=== PATIENT | female | born 1940 | race Caucasian/White ===

== ENCOUNTER → 2019-08-15 08:48 | Outpatient (BNVA) | payer MEDICARE, OTHER, SELFPAY | PROVIDERS: PCP Family Medicine; Visit Provider Family Medicine | DX: R05 Cough (principal); R50.9 Fever, unspecified; J01.00 Acute maxillary sinusitis, unspecified; J20.9 Acute bronchitis, unspecified | CPT/HCPCS: 87804 ==

== ENCOUNTER → 2020-03-04 12:07 | Outpatient (BNVA) | payer MEDICARE, OTHER, SELFPAY | PROVIDERS: PCP Family Medicine; Visit Provider Family Medicine | DX: E78.2 Mixed hyperlipidemia (principal); I10 Essential (primary) hypertension; L91.8 Other hypertrophic disorders of the skin; I48.91 Unspecified atrial fibrillation; Z68.31 Body mass index [BMI] 31.0-31.9, adult; F17.211 Nicotine dependence, cigarettes, in remission; Z71.89 Other specified counseling | CPT/HCPCS: 80053; 80061; 84443; 85025 ==

== ENCOUNTER → 2020-10-11 11:41 | Outpatient (BNVA) | payer MEDICARE, OTHER, SELFPAY | PROVIDERS: PCP Family Medicine; Visit Provider Family Medicine | DX: E78.2 Mixed hyperlipidemia (principal); I10 Essential (primary) hypertension; I48.91 Unspecified atrial fibrillation | CPT/HCPCS: 80053; 80061; 84443; 85025 ==

== ENCOUNTER → 2021-07-28 14:15 | Outpatient (BNVA) | payer MEDICARE, OTHER, SELFPAY | PROVIDERS: PCP Family Medicine; Visit Provider Family Medicine | DX: E78.2 Mixed hyperlipidemia (principal); I10 Essential (primary) hypertension; I48.91 Unspecified atrial fibrillation | CPT/HCPCS: 80053; 80061; 84443; 85025 ==

== ENCOUNTER → 2021-09-29 11:25 | Outpatient (BNVA) | payer MEDICARE, OTHER, SELFPAY | PROVIDERS: PCP Family Medicine; Visit Provider Specialist | DX: M25.572 Pain in left ankle and joints of left foot (principal); M19.072 Primary osteoarthritis, left ankle and foot | CPT/HCPCS: 73610 ==

== ENCOUNTER → 2021-10-30 14:17 | Outpatient (BNVA) | payer MEDICARE, OTHER, SELFPAY | PROVIDERS: PCP Family Medicine; Visit Provider Internal Medicine Cardiovascular Disease | DX: I48.91 Unspecified atrial fibrillation (principal); I10 Essential (primary) hypertension; E78.2 Mixed hyperlipidemia; M79.89 Other specified soft tissue disorders; Z87.891 Personal history of nicotine dependence; Z79.01 Long term (current) use of anticoagulants | CPT/HCPCS: 99214 ==

== ENCOUNTER → 2022-02-25 08:34 | Outpatient (BNVA) | payer MEDICARE, OTHER, SELFPAY | PROVIDERS: PCP Family Medicine; Visit Provider Family Medicine | DX: I10 Essential (primary) hypertension (principal); E78.2 Mixed hyperlipidemia; I48.91 Unspecified atrial fibrillation | CPT/HCPCS: 80053; 80061; 84443; 85025 ==

== ENCOUNTER 2022-03-03 14:11 | Outpatient (CLI) | payer MEDICARE, OTHER, SELFPAY ==
--- NOTE | 2022-03-03 14:18 | MM_ITS ---
WS: [id number] BILATERAL 3D TOMOSYNTHESIS DIGITAL SCREENING MAMMOGRAPHY WITH CAD CLINICAL INFORMATION: Z12.31 - Encounter for screening mammogram for malignant ... HISTORY: Screening mammogram. No current complaints. COMPARISON: TECHNIQUE: Bilateral CC and MLO views. FINDINGS: The breasts are composed of heterogeneous fibroglandular density tissue, which can limit the detectio n of small underlying mass lesions. Incidental punctate calcifications. Vascular calcification. Stabl e nodular subareolar breast tissue. No suspicious mass, asymmetry, calcifications, or architectural d istortion. No evidence of malignancy. MM/[place] [id number] IMPRESSION: BI-RADS: 2-Benign FOLLOW UP: 1 Year Follow-up Recommend return to annual screening mammography.
== END 2022-03-03 14:12 | disposition home or self-care (01) ==
LOC: RAD 14:12
PROVIDERS: PCP Family Medicine; Visit Provider Family Medicine
DX: Z12.31 Encounter for screening mammogram for malignant neoplasm of breast (principal)
CPT/HCPCS: 77063; 77067

== ENCOUNTER → 2022-04-30 14:16 | Outpatient (BNVA) | payer MEDICARE, OTHER, SELFPAY | PROVIDERS: PCP Family Medicine; Visit Provider Internal Medicine Cardiovascular Disease | DX: I48.91 Unspecified atrial fibrillation (principal); E78.2 Mixed hyperlipidemia; I10 Essential (primary) hypertension; M79.89 Other specified soft tissue disorders; Z87.891 Personal history of nicotine dependence | CPT/HCPCS: 99213; 99214 ==

== ENCOUNTER → 2022-11-19 13:59 | Outpatient (BNVA) | payer MEDICARE, OTHER, SELFPAY | PROVIDERS: PCP Family Medicine; Visit Provider Internal Medicine Cardiovascular Disease | DX: I48.91 Unspecified atrial fibrillation (principal); I10 Essential (primary) hypertension; E78.2 Mixed hyperlipidemia; M79.89 Other specified soft tissue disorders; Z87.891 Personal history of nicotine dependence | CPT/HCPCS: 99214 ==

== ENCOUNTER → 2023-01-04 13:05 | Outpatient (BNVA) | payer MEDICARE, OTHER, SELFPAY | PROVIDERS: PCP Family Medicine; Referring Provider Family Medicine; Visit Provider Dermatology | DX: L85.9 Epidermal thickening, unspecified (principal); L57.0 Actinic keratosis; L81.4 Other melanin hyperpigmentation; L82.1 Other seborrheic keratosis; L84 Corns and callosities; L85.3 Xerosis cutis; Z12.83 Encounter for screening for malignant neoplasm of skin | CPT/HCPCS: 11102; 17000; 99203 ==

== ENCOUNTER → 2023-02-16 10:01 | Outpatient (BNVA) | payer MEDICARE, OTHER, SELFPAY | PROVIDERS: PCP Family Medicine; Visit Provider Family Medicine | DX: E78.5 Hyperlipidemia, unspecified (principal); I10 Essential (primary) hypertension; I48.91 Unspecified atrial fibrillation | CPT/HCPCS: 80053; 80061; 84443 ==

== ENCOUNTER → 2023-06-10 13:58 | Outpatient (BNVA) | payer MEDICARE, OTHER, SELFPAY | PROVIDERS: PCP Family Medicine; Visit Provider Nurse Practitioner Family | DX: I48.91 Unspecified atrial fibrillation (principal); Z87.891 Personal history of nicotine dependence; Z79.01 Long term (current) use of anticoagulants | CPT/HCPCS: 99213 ==

== ENCOUNTER → 2023-09-01 09:30 | Outpatient (BNVA) | payer MEDICARE, OTHER, SELFPAY | PROVIDERS: PCP Family Medicine; Visit Provider Family Medicine | DX: I10 Essential (primary) hypertension; E78.2 Mixed hyperlipidemia; I48.91 Unspecified atrial fibrillation | CPT/HCPCS: 80053; 80061; 84443; 85025 ==

== ENCOUNTER 2023-10-22 16:34 | Emergency (ER) | payer MEDICARE, OTHER, SELFPAY ==
[2023-10-22 16:38] VITALS: BP 162/66; PULSE 92; RESP 16; TEMP 36.7; O2SAT 93
--- NOTE | 2023-10-22 16:41 | XRR_ITS ---
PROCEDURE INFORMATION: Exam: XR Left Shoulder Exam date and time: 10/22/2023 5:05 PM Age: 83 years old Clinical indication: Injury or trauma; Fall; Other: Unknown; Additional info: Trauma/fall TECHNIQUE: Imaging protocol: Radiologic exam of the left shoulder. Views: 2 or more views. COMPARISON: No relevant prior studies available. FINDINGS: Bones/joints: The glenohumeral articulation is grossly intact. 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 Soft tissues: No gross soft tissue abnormality. XR/XR shoulder LT min 2V* [id number] IMPRESSION: 1. No evidence of fracture or subluxation.
--- NOTE | 2023-10-22 16:41 | XRR_ITS ---
PROCEDURE INFORMATION: Exam: XR Right Shoulder Exam date and time: 10/22/2023 5:07 PM Age: 83 years old Clinical indication: Injury or trauma; Fall; Other: Unknown; Additional info: Trauma/fall TECHNIQUE: Imaging protocol: Radiologic exam of the right shoulder. Views: 2 or more views. COMPARISON: No relevant prior studies available. FINDINGS: Bones/joints: The glenohumeral articulation is grossly intact. 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 Soft tissues: No gross soft tissue abnormality. XR/XR shoulder RT min 2V* [id number] IMPRESSION: 1. No evidence of fracture or subluxation.
--- NOTE | 2023-10-22 18:44 | W.ED.EXTPRO ---
HPI - Extremity Problem General: Chief complaint: Extremity Injury, Upper Stated complaint: Left arm pain Time Seen by Provider: 10/22/23 18:41 History of Present Illness: 83-year-old female with a history of hypertension and A-fib on Xarelto who presents the emergency room with bilateral shoulder pain after she fell earlier today. She has a bruise on her left shoulder and pain. No obvious deformity. She has some mild pain in her right shoulder as well. She did not hit her head. No altered mental status. No loss of consciousness. Review of Systems Narrative: Constitutional symptoms: Negative except as documented in HPI. Skin symptoms: Negative except as documented in HPI. Eye symptoms: Negative except as documented in HPI. ENMT symptoms: Negative except as documented in HPI. Respiratory symptoms: Negative except as documented in HPI. Cardiovascular symptoms: Negative except as documented in HPI. Gastrointestinal symptoms: Negative except as documented in HPI. Genitourinary symptoms: Negative except as documented in HPI. Musculoskeletal symptoms: Negative except as documented in HPI. Neurologic symptoms: Negative except as documented in HPI. Psychiatric symptoms: Negative except as documented in HPI. Endocrine symptoms: Negative except as documented in HPI. PFSH ED PFSH: Medical History (Updated 10/22/23 @ 18:47 by Tata Madison MD) Hypertension Hyperlipidemia Afib Surgical History Hx of hysterectomy Hx of right inguinal hernia repair Hx of bilateral cataract extraction Hx of colonoscopy History of surgical removal of ganglion cyst Family History Family/Other CAD (coronary artery disease) Brother Cancer Mother Dementia Denies family history of Diabetes Clotting disorder Chronic kidney disease (CKD) Suicide Anesthesia complication Bleeding disorder Lung disease Stroke Social History Smoking and tobacco/nicotine status: former use of tobacco/nicotine Quit status (tobacco/nicotine): has quit using Year quit tobacco: 1992 Second hand smoke exposure: No Alcohol intake: never Substance/Drug Use: never Current occupational status: retired Physical Exam Narrative: EXAM NARRATIVE: General: Alert, no acute distress. Skin: warm and dry Head: Normocephalic Neck: Trachea midline Eye: Extraocular movements are intact. Ears, nose, mouth and throat: Oral mucosa moist Respiratory: Respirations are non-labored Musculoskeletal: Left shoulder with a large bruise and some limitation of her range of motion secondary to pain. No obvious deformity. Right shoulder has no deformity with better range of motion. Neurological: Alert and oriented to person, place, time, and situation, No focal neurological deficit observed. Psychiatric: Cooperative, appropriate mood & affect. Course Vital Signs: Vital signs: Vital Signs Temperature 98.1 F 10/22/23 16:38 Pulse Rate 92 10/22/23 16:38 Respiratory Rate 16 10/22/23 16:38 Blood Pressure 162/66 10/22/23 16:38 Pulse Oximetry 93 10/22/23 16:38 Oxygen Delivery Me thod Room Air 10/22/23 16:38 MDM - Extremity (Nontraumatic) Medical Decision Making Medical decision making: Differential diagnosis including but not limited to and based on the above HPI, review of systems and physical exam: Concern for shoulder fractures. Bilateral shoulder films were ordered. Orders placed to evaluate differential diagnosis based on the above differential, HPI and physical exam Bilateral x-rays show no shoulder fractures or dislocations. Lab Data Radiology Impressions Shoulder X-Ray 10/22/23 16:41 IMPRESSION: 1. No evidence of fracture or subluxation. All radiology interpretation(s) finalized by discharge Other Data Assessment and plan: - Discharged home - Discussed plan with patient. Answered any questions. - Evaluation and treatment of this problem were appropriate in the emergency setting. Discharge Plan Discharge Patient Disposition: Home Clinical Impression: Bilateral shoulder injury Condition: Stable Prescriptions: No Action Xarelto 20 mg tablet See Rx Instructions .ROUTE .COMPLEX Qty: 30 6RF Dose Instruction: TAKE ONE TABLET BY MOUTH EVERY DAY Rx Instructions: TAKE ONE TABLET BY MOUTH EVERY DAY metoprolol tartrate 50 mg tablet 50 mg PO BID Qty: 60 5RF hydralazine 25 mg tablet 25 mg PO BID 90 Days Qty: 180 5RF losartan 50 mg tablet See Rx Instructions .ROUTE .COMPLEX Qty: 270 2RF Dose Instruction: TAKE TWO TABLETS BY MOUTH EVERY MORNING AND TAKE ONE TABLET EVERY EVENING Rx Instructions: TAKE TWO TABLETS BY MOUTH EVERY MORNING AND TAKE ONE TABLET EVERY EVENING atorvastatin 40 mg tablet 40 mg PO DAILY Qty: 90 3RF cholecalciferol (vitamin D3) 25 mcg (1,000 unit) capsule 25 mcg PO DAILY Qty: 90 3RF diltiazem HCl 120 mg capsule,extended release 24hr See Rx Instructions .ROUTE .COMPLEX Qty: 90 3RF Dose Instruction: TAKE ONE CAPSULE BY MOUTH EVERY DAY Rx Instructions: TAKE ONE CAPSULE BY MOUTH EVERY DAY Discharge Orders: Discharge ED (Routine); Ordered 10/22/23 Ordered By: Tata Madison Referrals: Seth Spann DO [Physician] - (Please call for an appointment if pain persist.) Makenzie Larios MD [Primary Care Provider] - (You have been screened and evaluated and felt safe for discharge. Health conditions do change or evolve sometimes and as such it is important that you follow up with your Primary Doctor to be re checked, 3-5 days is a general good time frame for follow up. You are always welcome to return to the ED for re assessment if your symptoms are worsening or you have new concerns) Discharge Diet: Usual diet Discharge Activity: Increase activity as tolerated Patient Instructions: Shoulder Sprain (ED), Opioid Safety, Pain Management Coding Level of Care Code ED Property Management Coordinator for Neda Schumacher
== END 2023-10-22 19:08 | disposition home or self-care (01) ==
PROVIDERS: Emergency Provider Emergency Medicine; PCP Family Medicine
DX: S40.012A Contusion of left shoulder, initial encounter (principal); S49.91XA Unspecified injury of right shoulder and upper arm, initial encounter; W19.XXXA Unspecified fall, initial encounter; I10 Essential (primary) hypertension; E78.5 Hyperlipidemia, unspecified; Z87.891 Personal history of nicotine dependence
CPT/HCPCS: 73030; 99283

== ENCOUNTER 2023-10-30 01:43 | Emergency (ER) | payer MEDICARE, OTHER, SELFPAY ==
[2023-10-30 01:43] VITALS: BP 180/85; PULSE 87; RESP 18; TEMP 36.8; O2SAT 91; BMI 28.1
--- NOTE | 2023-10-30 02:12 | W.ED.EXTPRO ---
HPI - Extremity Problem General: Chief complaint: Extremity Injury, Upper Stated complaint: left arm pain Time Seen by Provider: 10/30/23 01:59 History of Present Illness: 83-year-old female presents emergency department via EMS personnel with complaints of bruising and swelling to her left arm. She states that she fell on 10/22/2023 and was seen here in the emergency department. She states she followed up with her primary care provider on 10/28/2023 who documented that the extension of the bruising was down to the DIP of the left hand. Patient does have full range of motion of the elbow and hand she states she does have slightly limited motion of the entire arm at that shoulder level. She states that she is scheduled for an MRI and to have the ligaments evaluated. She states she did take her pain pill and it did help with the pain. She states she has not been wearing her sling as requested because the Velcro scratches her skin. Review of Systems General: Reports: 10 or more systems reviewed and unremarkable except in HPI and below Musc: Reports: extremity swelling Skin/Breast: Reports: pruritus and skin swelling [facility] ED PFSH: Medical History (Updated 10/30/23 @ 03:54 by John Payne MD) Enrolled in chronic care management Hypertension Hyperlipidemia Afib Surgical History Hx of hysterectomy Hx of right inguinal hernia repair Hx of bilateral cataract extraction Hx of colonoscopy History of surgical removal of ganglion cyst Family History Family/Other CAD (coronary artery disease) Brother Cancer Mother Dementia Denies family history of Diabetes Clotting disorder Chronic kidney disease (CKD) Suicide Anesthesia complication Bleeding disorder Lung disease Stroke Social History Smoking and tobacco/nicotine status: former use of tobacco/nicotine Quit status (tobacco/nicotine): has quit using Year quit tobacco: 1992 Second hand smoke exposure: No Alcohol intake: never Substance/Drug Use: never Current occupational status: retired Physical Exam Narrative: EXAM NARRATIVE: General: Alert, no acute distress. Skin: Warm, dry, Intact. Head: Normocephalic, atraumatic. Neck: Supple, trachea midline. Eye: Extraocular movements are intact. PERRLA Ears, nose, mouth and throat: mucosa moist. Cardiovascular: Regular, Normal peripheral perfusion. Respiratory: Lungs are clear to auscultation, respirations are non-labored, breath sounds are equal, Symmetrical chest wall expansion. Gastrointestinal: Soft, Nontender, Non distended, Normal bowel sounds. Musculoskeletal: Normal ROM, no deformity. Patient does have significant bruising that does appear to be healing she is more purple to the distal left hand, she she does have capillary refills less than 3 seconds. She has no difficulty with flexion extension abduction or adduction of her fingers, wrist, and entire left arm. Neurological: Alert and oriented, No focal neurological deficit observed. Psychiatric: Cooperative, appropriate mood & affect. Course Vital Signs: Vital signs: Vital Signs Temperature 98.2 F 10/30/23 01:43 Pulse Rate 87 10/30/23 01:43 Respiratory Rate 18 10/30/23 01:43 Blood Pressure 180/85 10/30/23 01:43 Pulse Oximetry 91 10/30/23 01:43 MDM - Extremity (Nontraumatic) Medical Decision Making Physical exam completed and documented I did review the patient's previous 2 notes from her primary care provider as well as the ER visit or Dr. López saw her for complaints of arm pain. Patient does have pain medication. I have requested that the patient get a Webril wrap to the left upper extremity. We have also provided some foam tape over the area of the Velcro that does appear to be sharp and scratchy. Penis was intact both before and after the compression dressing on left arm. Pulses remained 2+ and equal bilaterally. a left arm compression dressing was applied capillary refill is less than 3 seconds in the extremity remained warm. Patient will be discharged home and have advised her to follow the previous recommendations of her primary care provider and to keep the appointment that she is already made to have her MRI evaluated. Medical Records I reviewed the patient's medical records. No radiology studies performed this visit Discharge Plan Discharge Patient Disposition: Home Clinical Impression: Traumatic ecchymosis of left upper arm, Edema of left upper extremity Condition: Stable Prescriptions: No Action Xarelto 20 mg tablet See Rx Instructions .ROUTE .COMPLEX Qty: 30 6RF Dose Instruction: TAKE ONE TABLET BY MOUTH EVERY DAY Rx Instructions: TAKE ONE TABLET BY MOUTH EVERY DAY metoprolol tartrate 50 mg tablet 50 mg PO BID Qty: 60 5RF hydralazine 25 mg tablet 25 mg PO BID 90 Days Qty: 180 5RF losartan 50 mg tablet See Rx Instructions .ROUTE .COMPLEX Qty: 270 2RF Dose Instruction: TAKE TWO TABLETS BY MOUTH EVERY MORNING AND TAKE ONE TABLET EVERY EVENING Rx Instructions: TAKE TWO TABLETS BY MOUTH EVERY MORNING AND TAKE ONE TABLET EVERY EVENING atorvastatin 40 mg tablet 40 mg PO DAILY Qty: 90 3RF hydrocodone-acetaminophen 5-325 mg tablet 1 tab PO BID PRN (Reason: pain) 10 Days Qty: 20 0RF cholecalciferol (vitamin D3) 25 mcg (1,000 unit) capsule 25 mcg PO DAILY Qty: 90 3RF diltiazem HCl 120 mg capsule,extended release 24hr See Rx Instructions .ROUTE .COMPLEX Qty: 90 3RF Dose Instruction: TAKE ONE CAPSULE BY MOUTH EVERY DAY Rx Instructions: TAKE ONE CAPSULE BY MOUTH EVERY DAY Discharge Orders: Discharge ED (Routine); Ordered 10/30/23 Ordered By: John Payne Referrals: Makenzie Larios MD [Primary Care Provider] - Discharge Diet: Usual diet Discharge Activity: Resume usual activity Patient Instructions: Opioid Safety, Pain Management Activity Restrictions/Additional Instructions: Activity Restrictions/Additional Instructions: Thank you for choosing [facility] for your healthcare needs today. Please realize that you were seen in the Emergency Department and that we are providing you with an emergency medical screening exam and this may not be a complete and all inclusive of all the testing and or medical work-up that you may need to determine your ailment or severity of your illness. It is very important that you follow-up as instructed with your Primary care provider or Specialist for additional evaluation and to discuss your medical treatment plan. Y Coding Level of Care Code ED Quality Liaison for Neda Schumacher
[2023-10-30 04:10] VITALS: BP 155/74; PULSE 93; RESP 18; O2SAT 92
[2023-10-30 04:23] VITALS: BP 155/74; PULSE 92; RESP 18; O2SAT 93
== END 2023-10-30 04:14 | disposition home or self-care (01) ==
PROVIDERS: Emergency Provider Internal Medicine; PCP Family Medicine
DX: S40.022A Contusion of left upper arm, initial encounter (principal); R60.0 Localized edema; Z87.891 Personal history of nicotine dependence; I10 Essential (primary) hypertension; E78.5 Hyperlipidemia, unspecified; W19.XXXA Unspecified fall, initial encounter
CPT/HCPCS: 99281

== ENCOUNTER 2023-11-09 15:08 | Outpatient (CLI) | payer MEDICARE, OTHER, SELFPAY ==
--- NOTE | 2023-11-09 16:00 | MR_ITS ---
WS: [id number] MRI LEFT SHOULDER HISTORY: M25.512 - Pain in left shoulder COMPARISON: Radiograph 10/22/2023 TECHNIQUE: Multiplanar sequences of the shoulder joint are submitted. Moderate to severe AC joint arthritis. Loss of the normal joint space with osteophytic ridging encroa sophia upon the region of the myotendinous supraspinatus. High riding humeral head abuts the undersurf tommie of the acromion. No os acromion. Partial subluxation of the biceps tendon from the bicipital groo ve. Severe atrophy of the supraspinatus muscle. Edema in the subscapularis and infraspinatus muscles. Com plete tear with retraction of the supraspinatus tendon into the medial humeral head near the glenoid. Subscapularis tendon is being displaced. The distal aspect is not very well visualized. Infraspinatu s tendon is probably intact. High riding humeral head with loss of the cartilage. Complex fluid and synovial thickening surroundin g the head. There is a large heterogeneous cystic mass anterior to the humeral head measuring 2.5 x 5 .3 cm. This is probably synovial fluid. Probably related to rotator cuff tear or arthritis. 11 mm loo se body lateral to the humeral head. Marked narrowing of the glenohumeral joint. Labrum is diffusely abnormal. MR/MR shoulder LT wo con* [id number] IMPRESSION: 1. Advanced degenerative changes at the LEFT shoulder joint. 2. Complete tear with retraction supraspinatus tendon. Suspect additional tend on tear of the subscapularis tendon. 3. Marked synovitis and soft tissue surrounding the humeral head. There is a l arge complex cystic mass extending anterior to the humeral head. Probably relat ed to meniscal or labral tear. 4. Severe AC joint arthritis. 5. High riding humeral head. 6. 11 mm loose body lateral to the humeral head. 7. Abnormal labrum. 8. Edema in the infraspinatus and subscapularis muscles. 9. Severe atrophy of the supraspinatus muscle.
== END 2023-11-09 15:09 | disposition home or self-care (01) ==
LOC: RAD 15:09
PROVIDERS: PCP Family Medicine; Visit Provider Family Medicine
DX: M25.512 Pain in left shoulder (principal); M25.412 Effusion, left shoulder; M19.012 Primary osteoarthritis, left shoulder; M24.012 Loose body in left shoulder
CPT/HCPCS: 73221

== ENCOUNTER → 2023-12-13 15:09 | Outpatient (BNVA) | payer MEDICARE, OTHER, SELFPAY | PROVIDERS: PCP Family Medicine; Visit Provider Internal Medicine Cardiovascular Disease | DX: I48.91 Unspecified atrial fibrillation (principal); Z79.01 Long term (current) use of anticoagulants; I10 Essential (primary) hypertension; E78.2 Mixed hyperlipidemia; Z87.891 Personal history of nicotine dependence | CPT/HCPCS: 99214 ==

== ENCOUNTER → 2024-01-19 09:20 | Outpatient (BNVA) | payer MEDICARE, OTHER, SELFPAY | PROVIDERS: PCP Family Medicine; Visit Provider Specialist | DX: M12.812 Other specific arthropathies, not elsewhere classified, left shoulder; S46.812A Strain of other muscles, fascia and tendons at shoulder and upper arm level, left arm, initial encounter; W10.9XXA Fall (on) (from) unspecified stairs and steps, initial encounter | CPT/HCPCS: 73030; 99214 ==

== ENCOUNTER 2024-01-26 06:00 | Outpatient (RCR) | payer MEDICARE, OTHER, SELFPAY | END 2024-02-09 23:59 | disposition home or self-care (01) | LOC: TPT 06:00 | PROVIDERS: Visit Provider Specialist | DX: M75.102 Unspecified rotator cuff tear or rupture of left shoulder, not specified as traumatic (principal); M75.02 Adhesive capsulitis of left shoulder | CPT/HCPCS: 97110; 97140; 97162 ==

== ENCOUNTER 2024-02-10 06:00 | Outpatient (RCR) | payer MEDICARE, OTHER, SELFPAY | END 2024-03-11 23:59 | disposition home or self-care (01) | LOC: TPT 06:00 | PROVIDERS: Visit Provider Specialist | DX: M75.102 Unspecified rotator cuff tear or rupture of left shoulder, not specified as traumatic (principal); M75.02 Adhesive capsulitis of left shoulder | CPT/HCPCS: 97110; 97140 ==

== ENCOUNTER → 2024-06-20 15:52 | Outpatient (BNVA) | payer MEDICARE, OTHER, SELFPAY | PROVIDERS: Visit Provider Internal Medicine Cardiovascular Disease | DX: I10 Essential (primary) hypertension (principal); I48.91 Unspecified atrial fibrillation; E78.5 Hyperlipidemia, unspecified; M79.89 Other specified soft tissue disorders; M19.90 Unspecified osteoarthritis, unspecified site; Z87.891 Personal history of nicotine dependence; Z79.01 Long term (current) use of anticoagulants | CPT/HCPCS: 99214 ==

== ENCOUNTER → 2024-07-20 10:46 | Outpatient (BNVA) | payer MEDICARE, OTHER, SELFPAY | PROVIDERS: PCP Family Medicine; Visit Provider Family Medicine | DX: I10 Essential (primary) hypertension (principal); I48.91 Unspecified atrial fibrillation; E78.2 Mixed hyperlipidemia; Z79.01 Long term (current) use of anticoagulants | CPT/HCPCS: 80053; 80061; 83735; 85025 ==

== ENCOUNTER → 2024-09-14 13:44 | Outpatient (BNVA) | payer MEDICARE, OTHER, SELFPAY | PROVIDERS: PCP Family Medicine; Visit Provider Orthopaedic Surgery | DX: M54.50 Low back pain, unspecified (principal) | CPT/HCPCS: 72110; 99203 ==

== ENCOUNTER → 2024-09-25 14:05 | Outpatient (BNVA) | payer MEDICARE, OTHER, SELFPAY | PROVIDERS: PCP Family Medicine; Visit Provider Specialist | DX: M65.351 Trigger finger, right little finger (principal); M67.431 Ganglion, right wrist | CPT/HCPCS: 73130; 99214 ==

== ENCOUNTER → 2024-10-23 13:42 | Outpatient (BNVA) | payer MEDICARE, OTHER, SELFPAY | PROVIDERS: PCP Family Medicine; Visit Provider Specialist | DX: M17.0 Bilateral primary osteoarthritis of knee (principal) | CPT/HCPCS: 73560; 73565; 99214 ==

== ENCOUNTER 2024-11-11 12:53 | Emergency (ER) | payer MEDICARE, OTHER, SELFPAY ==
[2024-11-11 12:54] VITALS: BP 199/77; PULSE 70; RESP 16; TEMP 37.1; O2SAT 92; BMI 28.1
--- NOTE | 2024-11-11 13:18 | ED_ITS ---
HPI - Back Pain/Injury General: Chief Complaint: Back Pain/Injury Stated Complaint: lower back pain Time Seen by Provider: 11/11/24 13:02 Source: patient Mode of arrival: ambulatory Limitations: no limitations History of Present Illness: 84yo female presents with right-sided ba ck pain that started last night at approximately 2030. Patient states she was sitting on a hard chair for 4 hours last night and had some pain when she got up. States that she was okay when she was in the car, but had significant discomfort when she got out of the car. Reports that she was not able to sleep due to the pain. States that it did ease up a little with a heating pad this morning, but came back again. Patient states it feels as if there is a catch in her back and she believes it is muscle spasms. Patient reports she was recently diagnosed with scoliosis. Patient denies any recent falls, trauma, known injury, radiation of pain down the leg, midline back pain, numbness/tingling, any other concerns at this time. Associated symptoms: Deny chills or fever(s) Related Data Home Medications ?Medication ?Instructions ?Recorded ?Confirmed diltiazem HCl 120 mg 120 mg PO DAILY 11/11/2410/03 capsule,extended release 24 hr rivaroxaban 20 mg tablet (Xarelto) 20 mg PO DAILY 10/0311/11/24 Previous Rx's ?Medication ?Instructions ?Recorded atorvastatin 40 mg tablet 40 mg PO DAILY #90 tabs 03/12 04/04 hydralazine 50 mg tablet 50 mg PO BID 90 days #180 ta bs 06/20/24 losartan 100 mg tablet 100 mg PO DAILY #90 tabs 05/05 losartan 50 mg tablet 50 mg PO DAILY #90 tabs 09/09 metoprolol tartrate 50 mg tablet 50 mg PO DAILY #90 ta bs 09/18/24 meloxicam 15 mg tablet 15 mg PO DAILY #30 tabs 10/10 11/03 lidocaine 4 % topical patch 1 patch topical Q12H PRN p ain #10 11/11/24 ea tizanidine 4 mg tablet 4 mg PO Q8H PRN muscle spast icity 11/11/24 #20 tabs Allergies Allergy/AdvReac Type Severity Reaction Status Date / Time aspirin Allergy Unknown Unknown Verified 10/23/24 13:48 Penicillins Allergy Unknown rash Verified 10/23/24 13:48 hydrochlorothiazide AdvReac Mild exhaustion Verified 10/23/24 13:48 Review of Systems Const: Denies: fever(s), chills or body aches Card: Denies: chest pain Resp: Denies: dyspnea : Denies: flank pain Musc: Reports: back pain Neuro: Denies: numbness in extremities or weakness in extremities PFSH ED PFSH: Medical History Chronic anticoagulation Enrolled in chronic care management Hypertension Hyperlipidemia Afib Surgical History Hx of hysterectomy Hx of right inguinal hernia repair Hx of bilateral cataract extraction Hx of colonoscopy History of surgical removal of ganglion cyst Family History Family/Other CAD (coronary artery disease) Brother Prostate cancer Mother Dementia Denies family history of Diabetes Clotting disorder Chronic kidney disease (CKD) Suicide Anesthesia complication Bleeding disorder Lung disease Stroke Social History Smoking and tobacco/nicotine status: former use of tobacco/nicotine Quit status (tobacco/nicotine): has quit using Year quit tobacco: 1992 Second hand smoke exposure: No Alcohol intake: never Substance/Drug Use: never Lives independently: Yes Household members: none Number of children: 1 Number of grandchildren: 1 Current occupational status: retired Previous occupational history: tree farmer, medical imaging technologist & factory work Leisure activites: other Leisure activities details: ollie hooks, 48 hours Shila/Faith: Zoroastrianism Special shila needs: No Agree to transfusion: Yes Physical Exam Const: COMMON NORMALS: no acute distress, patient oriented x3, healthy appearing and alert GENERAL APPEARANCE: cooperative ORIENTATION/CONSCIOUSNESS: Yes awake OTHER: Patient is sitting upright on the stretcher no acute distress. She is able to give history with no difficulty. She is interactive with exam appropriately. She is able to make position changes unassisted. No family is at bedside at time of exam HENMT: COMMON NORMALS: normocephalic and atraumatic HEAD & SCALP: normocephalic and atraumatic Chest: CHEST: Yes Symmetrical chest wall rise Resp: COMMON NORMALS: normal respiratory effort EFFORT & INSPECTION: Yes able to speak in complete sentences Back/Pelvis: THORACIC SPINE/UPPER BACK: No thoracic spinal tenderness LUMBAR SPINE/LOWER BACK: No lumbar spinal tenderness, Yes paraspinal muscle tenderness Lumbar paraspinal muscle tenderness: right Right lumbar paraspinal muscle tenderness: L2 and Yes paraspinal muscle spasm Lumbar paraspinal muscle spasm: right Right lumbar paraspinal muscle spasm: L2 Neuro: COMMON NORMALS: patient oriented x3 SENSORIUM/ORIENTATION: Yes alert Psych: COMMON NORMALS: cooperative Course Vital Signs: Vital signs: Vital Signs Temperature 98.8 F 11/11/24 12:54 Pulse Rate 61 11/11/24 14:50 Respiratory Rate 14 11/11/24 14:50 Blood Pressure 151/72 11/11/24 14:50 Pulse Oximetry 93 11/11/24 14:50 Oxygen Delivery Me thod Room Air 11/11/24 12:54 MDM - Back Pain/Injury Medical Decision Making 84yo female presents with right-sided back pain that started last night at approximately 2030. Patient states she was sitting on a hard chair for 4 hours last night and had some pain when she got up. States that she was okay when she was in the car, but had significant discomfort when she got out of the car. Reports that she was not able to sleep due to the pain. States that it did ease up a little with a heating pad this morning, but came back again. Patient states it feels as if there is a catch in her back and she believes it is muscle spasms. Patient reports she was recently diagnosed with scoliosis. Patient denies any recent falls, trauma, known injury, radiation of pain down the leg, midline back pain, numbness/tingling, any other concerns at this time. Patient is nontoxic in appearance. Vital signs are stable. No bony tenderness noted on exam, likely muscular in nature. Will proceed with tizanidine and lidocaine patch and reevaluate. Patient was able to ambulate to the restroom and back with no difficulty. Reported that her pain had resolved. Patient is stable for discharge. Will proceed with prescriptions for tizanidine and lidocaine patches. Encourage patient to avoid heavy lifting, but work on range of motion exercises. Recommend she follow-up with primary care, call Wednesday with an update of symptoms and to discuss a recheck. Return precautions provided. Patient states understanding and has no further questions or concerns at this time. No radiology studies performed this visit Discharge Plan Discharge Patient Disposition: Home Clinical Impression: Spasm of muscle of lower back Condition: Stable Prescriptions: New tizanidine 4 mg tablet 4 mg PO Q8H PRN (Reason: muscle spasticity) Qty: 20 0RF lidocaine 4 % adhesive patch,medicated 1 patch topical Q12H PRN (Reason: pain) Qty: 10 0RF No Action meloxicam 15 mg tablet 15 mg PO DAILY Qty: 30 1RF Rx Instructions: Take 1 tablet daily hydralazine 50 mg tablet 50 mg PO BID 90 Days Qty: 180 3RF atorvastatin 40 mg tablet 40 mg PO DAILY Qty: 90 3RF losartan 50 mg tablet 50 mg PO DAILY Qty: 90 1RF Rx Instructions: ONE TAB EVERY PM losartan 100 mg tablet 100 mg PO DAILY Qty: 90 1RF Rx Instructions: ONE TABE EVERY AM metoprolol tartrate 50 mg tablet 50 mg PO DAILY Qty: 90 1RF diltiazem HCl 120 mg capsule,extended release 24hr 120 mg PO DAILY Rx Instructions: TAKE ONE CAPSULE BY MOUTH EVERY DAY Xarelto 20 mg tablet 20 mg PO DAILY Rx Instructions: TAKE ONE TABLET BY MOUTH DAILY Discharge Orders: Discharge ED (Routine); Ordered 11/11/24 Ordered By: Taras Burton Referrals: Zari Us MD [Primary Care Provider, [facility]] Discharge Diet: Usual diet Discharge Activity: Increase activity as tolerated Patient Instructions: Muscle Spasm (ED), Lower Back Exercises (ED), Pain Management Activity Restrictions/Additional Instructions: Tizanidine has been sent to your pharmacy to help with the muscle spasms A prescription of lidocaine patches have also been sent to the pharmacy to help with pain Try to avoid heavy lifting for the next several days. See provided handout with information about low back exercises Follow-up with primary care, call Wednesday with an update of symptoms and to discuss a possible recheck Return to the emergency department if any rapid worsening symptoms, further injury, and as needed Print Language: French Coding Level of Care Code ED Tip Inserter for Neda Schumacher
[2024-11-11] MEDS: tizanidine 4 mg Tablet PO (13:30)
[2024-11-11] MEDS: lidocaine 5% Patch 1 PATCH TOPICAL (13:31)
[2024-11-11 14:50] VITALS: BP 151/72; PULSE 61; RESP 14; O2SAT 93
== END 2024-11-11 14:48 | disposition home or self-care (01) ==
PROVIDERS: Emergency Provider Nurse Practitioner; PCP Family Medicine
DX: M62.830 Muscle spasm of back (principal); Z87.891 Personal history of nicotine dependence; E78.5 Hyperlipidemia, unspecified; I10 Essential (primary) hypertension
CPT/HCPCS: 99283; J9999

== ENCOUNTER → 2024-11-22 12:50 | Outpatient (BNVA) | payer MEDICARE, OTHER, SELFPAY | PROVIDERS: PCP Family Medicine; Visit Provider Specialist | DX: M17.0 Bilateral primary osteoarthritis of knee (principal) | CPT/HCPCS: 99213 ==

== ENCOUNTER → 2025-01-16 10:28 | Outpatient (BNVA) | payer MEDICARE, OTHER, SELFPAY | PROVIDERS: PCP Family Medicine; Visit Provider Internal Medicine Cardiovascular Disease | DX: I10 Essential (primary) hypertension (principal); I48.91 Unspecified atrial fibrillation; M17.9 Osteoarthritis of knee, unspecified; Z79.01 Long term (current) use of anticoagulants | CPT/HCPCS: 99204; 99214 ==

== ENCOUNTER → 2025-01-18 11:51 | Outpatient (BNVA) | payer MEDICARE, OTHER, SELFPAY | PROVIDERS: PCP Family Medicine; Visit Provider Family Medicine | DX: I10 Essential (primary) hypertension (principal); E78.2 Mixed hyperlipidemia; Z79.01 Long term (current) use of anticoagulants; M17.0 Bilateral primary osteoarthritis of knee | CPT/HCPCS: 80053; 80061; 85025 ==

== ENCOUNTER → 2025-06-21 15:18 | Outpatient (BNVA) | payer MEDICARE, OTHER, SELFPAY | PROVIDERS: PCP Family Medicine; Visit Provider Family Medicine | DX: I48.91 Unspecified atrial fibrillation (principal); I10 Essential (primary) hypertension; E78.2 Mixed hyperlipidemia; Z79.01 Long term (current) use of anticoagulants | CPT/HCPCS: 80053; 80061; 85025 ==

== ENCOUNTER → 2025-07-10 10:47 | Outpatient (BNVA) | payer MEDICARE, OTHER, SELFPAY | PROVIDERS: PCP Family Medicine; Visit Provider Family Medicine | DX: R79.89 Other specified abnormal findings of blood chemistry (principal); D64.9 Anemia, unspecified | CPT/HCPCS: 80048; 85025 ==